=== PATIENT | female | born 1990 | race Caucasian/White ===

== ENCOUNTER 2022-07-22 11:59 | Inpatient (IN) | payer OTHER ==
[~2022-07-22] VITALS: Ht 188 cm; Wt 124.2 kg
[2022-07-22 12:59] LABS: HEMATOCRIT 42.4 % (42.0-52.0); HEMOGLOBIN 14.1 g/dl (13.5-17.5); MEAN CORPUSCULAR HEMOGLOBIN 29.1 pg (27.0-33.0); MEAN CORPUSCULAR HGB CONC 33.3 g/dl (32.0-36.5); MEAN CORPUSCULAR VOLUME 87.4 fl (80.0-96.0); PLATELET COUNT, AUTOMATED 294 10^3/uL (150-450); RED BLOOD COUNT 4.85 10^6/uL (4.30-6.10); WHITE BLOOD COUNT 10.3 10^3/uL (4.0-10.0)
[2022-07-22 13:28] LABS: AMPHETAMINES LEVEL URINE NEGATIVE (NEGATIVE); BARBITURATES URINE NEGATIVE (NEGATIVE); BENZODIAZEPINES URINE NEGATIVE (NEGATIVE); CANNABINOIDS URINE NEGATIVE (NEGATIVE); COCAINE METABOLITE URINE NEGATIVE (NEGATIVE); METHADONE URINE NEGATIVE (NEGATIVE); OPIATES URINE NEGATIVE (NEGATIVE); PHENCYCLIDINE URINE NEGATIVE (NEGATIVE)
[2022-07-22 13:31] LABS: ETHYL ALCOHOL (ETHANOL) < 0.003 % (0.000-0.010)
[2022-07-22 13:33] LABS: ACETAMINOPHEN LEVEL < 2.0 UG/ML (10.0-20.0); ALBUMIN 3.7 G/DL (3.2-5.2); ALKALINE PHOSPHATASE 66 U/L (46-116); ALT/SGPT 31 U/L (7.0-40); AST/SGOT 33 U/L (<34); BILIRUBIN,DIRECT < 0.1 MG/DL (<0.4); BILIRUBIN,TOTAL 0.2 MG/DL (0.3-1.2); BLOOD UREA NITROGEN 11 MG/DL (9-23); CALCIUM LEVEL 9.1 MG/DL (8.5-10.1); CARBON DIOXIDE LEVEL 25 MMOL/L (20-31); CHLORIDE LEVEL 110 MMOL/L (98-107); CREATININE FOR GFR 0.83 MG/DL (0.70-1.30); GLOMERULAR FILTRATION RATE > 60.0 (>60); GLUCOSE, FASTING 83 MG/DL (60-100); SALICYLATE LEVEL < 3.0 MG/DL (<30); SODIUM LEVEL 138 MMOL/L (136-145); TOTAL PROTEIN 6.7 G/DL (5.7-8.2)
[2022-07-22 13:36] LABS: THYROID STIMULATING HORMONE 1.774 uIU/ML (0.55-4.78)
[2022-07-22] MEDS ORDERED: BUSP10TA PO (15:56)
[2022-07-22] MEDS ORDERED: BUPR300T92 PO (15:56)
[2022-07-22] MEDS ORDERED: ARIP1TAB4 PO (15:56)
[2022-07-22] MEDS ORDERED: PROG1CAP8 PO (15:56)
[2022-07-22] MEDS ORDERED: SPIR100T3 PO (15:56)
[2022-07-22] MEDS ORDERED: LEXA1TAB2 PO (15:56)
[2022-07-22] MEDS ORDERED: ESTR20VI2 IM (15:57)
[2022-07-22] MEDS ORDERED: HOME MED LIST COMPLETE! XX SCH (16:00)
[2022-07-22] MEDS ORDERED: diphenhydrAMINE 25MG CAP PO PRN (16:15)
[2022-07-22] MEDS ORDERED: MOM 30ML SUSPENSION UDC PO PRN (16:15)
[2022-07-22] MEDS ORDERED: MAALOX 30 ML SUSP *UDC PO PRN (16:15)
[2022-07-22] MEDS ORDERED: IBUPROFEN 400MG TAB PO PRN (16:15)
[2022-07-22] MEDS ORDERED: traZODone 50 MG TAB PO PRN (16:15)
[2022-07-22] MEDS ORDERED: ACETAMINOPHEN TAB 650MG DOSE (2X325MG) PO PRN (16:15)
[2022-07-22] MEDS ORDERED: ENTER DRUG NAME HERE (PATIENT'S OWN MED) SC SCH (16:15)
[2022-07-22] MEDS: busPIRone 10 MG TAB PO SCH (22:25)
[2022-07-22 22:58] VITALS: BP 142/62
[2022-07-23 05:52] VITALS: BP 118/58
[2022-07-23] MEDS: busPIRone 10 MG TAB PO SCH ×3 (08:17→20:57)
[2022-07-23] MEDS: SPIRONOLACTONE 50 MG TAB PO SCH (08:17)
[2022-07-23] MEDS: ESCITALOPRAM OXALATE 10 MG TAB (LEXAPRO) PO SCH (08:18)
[2022-07-23] MEDS: buPROPion **XL** TABLET 150MG (WELLBUTRIN XL) PO SCH (08:18)
[2022-07-23] MEDS: NICOTINE 21MG/24HR 1 EA TRANSDERMAL TD SCH (08:21)
[2022-07-23] MEDS ORDERED: ARIPiprazole 2 MG TAB PO SCH (09:00)
[2022-07-23 18:16] VITALS: BP 144/85
[2022-07-23] MEDS: PROGESTERONE 100MG CAPSULE (PATIENT'S OWN MED) PO SCH (20:56)
[2022-07-24 07:17] VITALS: BP 115/65
[2022-07-24] MEDS: busPIRone 10 MG TAB PO SCH ×3 (07:51→20:32)
[2022-07-24] MEDS: SPIRONOLACTONE 50 MG TAB PO SCH (07:52)
[2022-07-24] MEDS: ESCITALOPRAM OXALATE 10 MG TAB (LEXAPRO) PO SCH (07:52)
[2022-07-24] MEDS: PROGESTERONE 100MG CAPSULE (PATIENT'S OWN MED) PO SCH (07:53)
[2022-07-24] MEDS: buPROPion **XL** TABLET 150MG (WELLBUTRIN XL) PO SCH (07:55)
[2022-07-24] MEDS: NICOTINE 21MG/24HR 1 EA TRANSDERMAL TD SCH (07:57)
[2022-07-24 15:59] VITALS: BP 136/84
[2022-07-25 06:35] VITALS: BP 122/60
[2022-07-25] MEDS: NICOTINE 21MG/24HR 1 EA TRANSDERMAL TD SCH (08:08)
[2022-07-25] MEDS: busPIRone 10 MG TAB PO SCH ×3 (08:09→20:32)
[2022-07-25] MEDS: buPROPion **XL** TABLET 150MG (WELLBUTRIN XL) PO SCH (08:10)
[2022-07-25] MEDS: SPIRONOLACTONE 50 MG TAB PO SCH (08:10)
[2022-07-25] MEDS: ESCITALOPRAM OXALATE 10 MG TAB (LEXAPRO) PO SCH (08:10)
[2022-07-25] MEDS: PROGESTERONE 100MG CAPSULE (PATIENT'S OWN MED) PO SCH (08:11)
[2022-07-25 16:29] VITALS: BP 106/60
[2022-07-26 06:42] VITALS: BP 122/65
[2022-07-26] MEDS: SPIRONOLACTONE 50 MG TAB PO SCH (08:11)
[2022-07-26] MEDS: buPROPion **XL** TABLET 150MG (WELLBUTRIN XL) PO SCH (08:11)
[2022-07-26] MEDS: busPIRone 10 MG TAB PO SCH ×3 (08:11→20:15)
[2022-07-26] MEDS: NICOTINE 21MG/24HR 1 EA TRANSDERMAL TD SCH (08:11)
[2022-07-26] MEDS: PROGESTERONE 100MG CAPSULE (PATIENT'S OWN MED) PO SCH (08:11)
[2022-07-26] MEDS: ESCITALOPRAM OXALATE 10 MG TAB (LEXAPRO) PO SCH (08:11)
[2022-07-26 16:55] VITALS: BP 123/60
[2022-07-27 07:07] VITALS: BP 116/61
[2022-07-27] MEDS: SPIRONOLACTONE 50 MG TAB PO SCH (08:10)
[2022-07-27] MEDS: ESCITALOPRAM OXALATE 10 MG TAB (LEXAPRO) PO SCH (08:10)
[2022-07-27] MEDS: buPROPion **XL** TABLET 150MG (WELLBUTRIN XL) PO SCH (08:10)
[2022-07-27] MEDS: busPIRone 10 MG TAB PO SCH (08:10)
[2022-07-27] MEDS: PROGESTERONE 100MG CAPSULE (PATIENT'S OWN MED) PO SCH (08:10)
[2022-07-27] MEDS: NICOTINE 21MG/24HR 1 EA TRANSDERMAL TD SCH (08:12)
[2022-07-27] MEDS ORDERED: BUSP10TA PO (09:53)
[2022-07-27] MEDS ORDERED: LEXA1TAB2 PO (09:53)
[2022-07-27] MEDS ORDERED: SPIR100T3 PO (09:53)
[2022-07-27] MEDS ORDERED: BUPR300T92 PO (09:53)
== END 2022-07-27 12:03 | disposition home or self-care (01) | DRG 881 ==
LOC: M ED 11:59 → EDSEX 11:59 → M ED INP 16:15 → M PSY 22:35
PROVIDERS: ADMIT Student in an Organized Health Care Education/Training Program; ATTEND Student in an Organized Health Care Education/Training Program
DX: F32.9 Major depressive disorder, single episode, unspecified (principal); R45.851 Suicidal ideations; F43.10 Post-traumatic stress disorder, unspecified; Z88.8 Allergy status to other drugs, medicaments and biological substances; Z79.899 Other long term (current) drug therapy; F41.9 Anxiety disorder, unspecified; F45.22 Body dysmorphic disorder